=== PATIENT | female | born 1995 | race Caucasian/White ===

== ENCOUNTER 2022-04-02 09:07 | Outpatient (CLI) | payer OTHER | END 2022-04-02 09:08 | disposition home or self-care (01) | LOC: CSHLAB 09:07 | PROVIDERS: ATTEND Obstetrics & Gynecology | DX: Z01.818 Encounter for other preprocedural examination (principal); O34.29 Maternal care due to uterine scar from other previous surgery; O32.1XX0 Maternal care for breech presentation, not applicable or unspecified; Z3A.00 Weeks of gestation of pregnancy not specified | CPT/HCPCS: 36415; 85027; 86780; 86850; 86900; 86901; 87340; 93005; 93010; U0003; U0005 ==

== ENCOUNTER 2022-04-04 08:02 | Inpatient (IN) | payer OTHER ==
[2022-04-02 11:37] LABS: Hemoglobin 14.3 g/dL (12.0-15.5); Mean Corpuscular HGB CONC 34.4 g/dL (32.0-36.0); Mean Corpuscular Hemoglobin 29.1 pg (27.0-33.0); Mean Corpuscular Volume 84.6 fl (81.6-98.3); Mean Platelet Volume 10.3 fl (7.4-10.4); Platelet Count 249 10x3/uL (150-450); RBC Distribution Width 13.8 % (11.5-14.5); Red Blood Cell (RBC) Count 4.92 10x6/uL (3.90-5.03); White Blood Cell (WBC) Count 8.9 10x3/uL (3.5-10.5)
[2022-04-02 12:13] LABS: HBSAg Index 0.24 S/CO (0-0.99); Hep B Surf Ag Non-Reactive S/CO (NonReactive)
[2022-04-02 12:14] LABS: Syphilis Antibody Nonreactive (Nonreactive); Syphilis Antibody Index 0.04 S/CO (<1.00 Non-Reactive)
[2022-04-04 08:28] VITALS: BMI 29.9
[2022-04-04] MEDS ORDERED: Ondansetron PF 4 MG/2 ML Vial ONE (08:34)
[2022-04-04] MEDS ORDERED: ePHEDrine Sulfate 50 MG/10 ML VIAL ONE (08:34)
[2022-04-04] MEDS ORDERED: Morphine PF 10 MG/10 ML VIAL ONE (08:34)
[2022-04-04] MEDS ORDERED: Famotidine/PF 20 mg/2ml Vial SLOW IVP PRN (08:56)
[2022-04-04] MEDS ORDERED: Bicitra 30 ML UDCUP PO PRN (08:56)
[2022-04-04] MEDS ORDERED: Clindamycin/D5W 900 MG in Premix Bag 1 BAG IVPB SCH (09:00)
[2022-04-04] MEDS ORDERED: Gentamicin Sulfate 120 MG in Premix Bag 1 BAG IVPB SCH (09:15)
[2022-04-04] MEDS ORDERED: Communication Order-Pharmacy FS SCH (10:15)
[2022-04-04] MEDS ORDERED: Naloxone HCl 0.4 mg/ml Vial IV PRN (10:15)
[2022-04-04] MEDS ORDERED: Promethazine HCl 25 MG SUPP PR PRN (10:15)
[2022-04-04] MEDS ORDERED: Ondansetron PF 4 MG/2 ML Vial IVP PRN ×2 (10:15→14:30)
[2022-04-04] MEDS ORDERED: Ketorolac Tromethamine 30 MG/ML VIAL IVP SCH (10:15)
[2022-04-04] MEDS ORDERED: Naloxone HCl 0.4 mg/ml Vial IVP PRN ×2 (10:15)
[2022-04-04] MEDS ORDERED: Meperidine HCl/PF 25 MG/ML VIAL SLOW IVP PRN (10:15)
[2022-04-04] MEDS ORDERED: Promethazine HCl 25 MG/ML VIAL IM PRN ×2 (10:15→14:30)
[2022-04-04] MEDS ORDERED: Fentanyl 100 MCG/2 ML VIAL SLOW IVP PRN (10:15)
[2022-04-04] MEDS ORDERED: Moisturizing Cream (Eucerin) 113 GM JAR TOP PRN (10:15)
[2022-04-04] MEDS ORDERED: diphenhydrAMINE 50 MG/ML VIAL IVP PRN (10:15)
[2022-04-04] MEDS ORDERED: Ondansetron HCl/PF 4 MG/2 ML Vial IVP PRN (10:15)
[2022-04-04] MEDS ORDERED: NS w/ Oxytocin 30 units 500 ML ONE (10:49)
[2022-04-04] MEDS: Ketorolac Tromethamine 30 MG/ML VIAL IVP PRN ×2 (14:16→21:24)
[2022-04-04] MEDS ORDERED: Boostrix 0.5 ML (Tdap) VIAL (>/=7 yrs of age) IM ONE (14:30)
[2022-04-04] MEDS ORDERED: Acetaminophen 325 MG TAB PO PRN (14:30)
[2022-04-04] MEDS ORDERED: hydrALAZINE 20 MG/ML VIAL SLOW IVP PRN (14:30)
[2022-04-04] MEDS ORDERED: NS w/ Oxytocin 30 units 500 ML IV SCH (14:30)
[2022-04-04] MEDS ORDERED: Lanolin Ointment 7 GM TUBE TOP PRN (14:30)
[2022-04-04] MEDS: Lactated Ringer's 1,000 ML IV SCH (15:24)
[2022-04-04] MEDS: Docusate 100 MG CAP PO SCH (21:24)
[2022-04-04] MEDS ORDERED: HYDROcodone/Acetaminophen 5/325 mg Tablet PO PRN (23:00)
[2022-04-04] MEDS ORDERED: Morphine 2 MG/ML VIAL SLOW IVP PRN (23:00)
[2022-04-04] MEDS ORDERED: Zolpidem Tartrate 5 MG TAB PO PRN (23:00)
[2022-04-05] MEDS: Lactated Ringer's 1,000 ML IV SCH ×3 (00:12→15:56)
[2022-04-05 05:17] LABS: Hemoglobin 12.7 g/dL (12.0-15.5); Mean Corpuscular HGB CONC 33.8 g/dL (32.0-36.0); Mean Corpuscular Volume 85.8 fl (81.6-98.3); Mean Platelet Volume 10.3 fl (7.4-10.4); Platelet Count 199 10x3/uL (150-450); Red Blood Cell (RBC) Count 4.38 10x6/uL (3.90-5.03); White Blood Cell (WBC) Count 10.3 10x3/uL (3.5-10.5)
[2022-04-05] MEDS: Ketorolac Tromethamine 30 MG/ML VIAL IVP PRN (05:22)
[2022-04-05] MEDS: Prenatal Vitamin 1 TAB PO SCH (09:52)
[2022-04-05] MEDS: Docusate 100 MG CAP PO SCH ×2 (09:52→22:07)
[2022-04-05] MEDS: HYDROcodone/Acetaminophen 5/325 mg Tablet PO PRN ×3 (09:52→19:09)
[2022-04-05] MEDS: Simethicone Chewable 80 MG TAB PO PRN ×2 (09:52→14:22)
[2022-04-05] MEDS: Ibuprofen 800 MG TAB PO SCH ×2 (14:14→22:07)
[2022-04-06] MEDS: HYDROcodone/Acetaminophen 5/325 mg Tablet PO PRN ×2 (00:49→08:38)
[2022-04-06] MEDS: Lactated Ringer's 1,000 ML IV SCH ×2 (02:46→11:12)
[2022-04-06] MEDS: Ibuprofen 800 MG TAB PO SCH (05:17)
[2022-04-06] MEDS: Docusate 100 MG CAP PO SCH (08:38)
[2022-04-06] MEDS: Simethicone Chewable 80 MG TAB PO PRN (08:38)
[2022-04-06] MEDS: Prenatal Vitamin 1 TAB PO SCH (08:38)
[2022-04-06 11:34] VITALS: BP 127/70; TEMP 97.8
== END 2022-04-06 12:40 | disposition home or self-care (01) | DRG 787 ==
LOC: CSHLD 08:02 → CSHPP 12:09
PROVIDERS: ADMIT Obstetrics & Gynecology; ATTEND Obstetrics & Gynecology
PROC: 10D00Z1 Extraction of Products of Conception, Low, Open Approach (ICD-10-PCS; principal; 2022-04-04)
DX: O32.1XX0 Maternal care for breech presentation, not applicable or unspecified (principal); R71.0 Precipitous drop in hematocrit; Z3A.39 39 weeks gestation of pregnancy; Z37.0 Single live birth; O34.211 Maternal care for low transverse scar from previous cesarean delivery; Z20.822 Contact with and (suspected) exposure to COVID-19; Z88.1 Allergy status to other antibiotic agents; O90.89 Other complications of the puerperium, not elsewhere classified
CPT/HCPCS: 36415; 51702; 85027; 86780; 86850; 86900; 86901; 87340; J1885; J2274; J2405; J2550; J7120; U0003; U0005